=== PATIENT | male | born 1990 | race Caucasian/White ===

== ENCOUNTER 2021-03-04 20:54 | Emergency (ER) | payer BC, OTHER ==
--- OUTSIDE RECORDS SUMMARY | 2021-03-04 20:57 | XMS REPORT | Continuity of Care Document ---
:[address] [facility] t Address [address] [place] [address] Care Team Providers Name Role Phone Cat RAMOS, Perry Primary Care Physician Nurse, Truong Cox I Attending Clinician Unavailable Problems Condition Condition Condition Status Onset Resolution Last Treating Co mments Source Name Details Category Date Date Treatment Clinician Date Gout of Gout of Disease Active Overview: Meth crystal left hand left hand 08-23 Formatt[facility] 00:[facility] 00 note l might be different from the original. Last 2 weeks ago.Also in the toe. ADHD ADHD Disease Active Overview: Method i 09-[address] 00:00: [facility] of this [facility] 00 note l might be different from the original. On vyvance per pschiatry Last Assessmen t & Plan: Formattin g of this note might be different from the original. Continue current Chronic Chronic Disease Active Overview: Meth crystal back pain back pain 10-11 Formattin s t 00:00: g of this [facility]osp[facility] 00 note l might be different from the original. Patient has been doing keto diet to lose weight. Has lost >30lbs, has had improveme nt in the pain. Last Assessmen t & Plan: Formattin g of this note might be different from the original. Continue pain managemen t Hypertensi Hypertensi Disease Active Overview : Methodi on on 10-[address] 00:00: g of this [facility] 00 note l might be different from the original. Blood pressure today is not at goal. Hasn't quite been at goal the last few visits. However, patient was verapamil --blood pressure was dropping on the verapamil . Metoprolo l makes him a little tired towards the end of the day.Estrella lira blood pressure is running in the 120s/80sN o chest pain, shortness of breath, headache, blurry vision, or weakness. Patient was on keto diet--had seen huge improveme nt in his blood pressure. Last Assessmen t & Plan: Formattin g of this note might be different from the original. Hypertens ion is not at goal.Cont inue current treatment regimen.B lood pressure will be reassesse d at the next regular appointme nt. Cervical Cervical Disease Active Metho di radiculopa radiculopa 3 thy thy 00:00: Hospita 00 l Allergies, Adverse Reactions, Alerts Allergy Allergy Status Severity Reaction(s) Onset Inactive Treating Comm ents Source Name Type Date Date Clinician Naproxen Propensi Active GI Method i ty to Intolerance 10-11 adverse 00:00: Hospita reaction 00 l s to drug Family History Family Member Diagnosis Comments Start Date Stop Date Source Natural father Diabetes [facility] Natural mother CABG/Stent [facility] Social History Social Habit Start Date Stop Date Quantity Comments Source Tobacco use and 2018-08-23 2018-08-23 Never used [facility] Alcohol intake 2018-08-23 2018-08-23 [facility] 00:[facility]:00 non-drinker of Hospital alcohol (finding) Sex Ass[birth year] At [birth year] [facility] Smoking Status Start Date Stop Date Source Former smoker 2018-08-23 00:00:00 2018-08-23 [facility] Medications Ordered Filled Start Stop Current Ordering Indication Dosage Frequency Signature Comments Components Source Medication Medication Date Date Medication? Clinician (SIG) Name Name metoprolol Yes TAKE 1 Metho di succinate 1-17 TABLET(50 st XL 00:00: MG) BY Hospita (TOPROL-XL) 00 MOUTH l 50 mg 24 hr DAILY tablet ibuprofen 2017-08 Yes TK 1 T PO Met hodi (ADVIL,MOTR 0-08 Q [address] [place]) 600 MG 00:00: P Hospita tablet 00 l VYVANSE 40 2018-0 Yes TK 1 C PO Me thodi mg capsule 1-[address] 00:00: Hospita 00 l Immunizations Ordered Immunization Filled Immunization Date Status Commen ts Source Name Name Tetanus 2017-06-08 Completed [facility] Td, Unspecified 2017-06-08 [facility] Procedures This patient has no known procedures. Plan of Care Planned Activity Planned Date Details Comments Source Future Scheduled Test COVID-19 VACCINE (1) [facility] [code = COVID-19 VACCINE (1)] Future Scheduled Test Hepatitis C screening [facility] (procedure) [code = 480287554] Future Scheduled Test INFLUENZA VACCINE M [facility] [code = INFLUENZA VACCINE] Encounters Start End Encounter Admission Attending Care Care Encounter Source Date/Time Date/Time Type Type Clinicians Facility Department ID 2019-11-04 2019-11-04 Telephone Nurse, Moriah [facility] [id number] 00:00:00 00:00:00 [facility] [id number] [place] [id number] Professio [id number] [address] Results This patient has no known results.
--- NOTE | 2021-03-04 22:10 | ER ---
Nurse's Notes [facility] Name: Sb Medina Age: 30 yrs Sex: Male : 1990 Arrival Date: 03/04/2021 Time: 20:57 Bed Waiting Private MD: Diagnosis: Presentation: 03/04 22:09 Note Registration states, Pt left. ca1 ED Course: 20:57 Patient arrived in ED. bp1 22:09 Patient's name was called from [facility]. No response. Unable to locate patient. Will ca1 disposition as left without being seen by a provider. Administered Medications: No medications were administered Outcome: 22:09 Patient left the ED. ca1 Signatures: Kelley Santillna RN RN ca1 Kathryn Lara bp1
== END 2021-03-04 22:09 | disposition left against medical advice (07) ==
LOC: ER 20:54
DX: Z02.9 Encounter for administrative examinations, unspecified (principal)